=== PATIENT | female | born 2000 | race Two or more races ===

== ENCOUNTER 2019-04-16 07:01 | Emergency (ER) | payer OTHER, MEDICAID ==
[~2019-04-16] VITALS: Ht 167.6 cm; Wt 65.8 kg
[2019-04-16 07:55] VITALS: BP 114/75
== END 2019-04-16 09:44 | disposition home or self-care (01) ==
LOC: EDBD 07:01 → ER 07:01
DX: S16.1XXA Strain of muscle, fascia and tendon at neck level, initial encounter (principal); S76.012A Strain of muscle, fascia and tendon of left hip, initial encounter; S76.011A Strain of muscle, fascia and tendon of right hip, initial encounter; R51 Headache; V49.9XXA Car occupant (driver) (passenger) injured in unspecified traffic accident, initial encounter; Y93.89 Activity, other specified; Y92.89 Other specified places as the place of occurrence of the external cause; Y99.8 Other external cause status
CPT/HCPCS: 70486; 71250; 72125; 74176

== ENCOUNTER 2019-07-29 14:24 | Inpatient (IN) | payer MEDICAID ==
[~2019-07-29] VITALS: Ht 167.6 cm; Wt 55.5 kg
[2019-07-29] MEDS ORDERED: SODIUM CHLORIDE 0.9% 1,000 ML IVB ONE (14:50)
[2019-07-29] MEDS ORDERED: MORPHINE SULFATE 4 MG/ML SYR/VIAL IV ONE (15:00)
[2019-07-29] MEDS ORDERED: ONDANSETRON HCL 4 MG/2 ML VIAL IV ONE (15:00)
[2019-07-29 15:19] LABS: Basophils # (auto) 0.1 10 ^3/uL (0-0.2); Basophils % (auto) 0.3 % (0.0-2.0); Eosinophils # (auto) 0 10 ^3/uL (0-0.8); Hematocrit 41.7 % (36.0-46.0); Hemoglobin 14.5 g/dL (12.2-16.2); Lymphocytes # (auto) 0.9 10 ^3/uL (0.4-5.4); Lymphocytes % (auto) 5.7 % (10.0-50.0); Mean Corpuscular Hemoglobin 32.7 pg (28.0-32.0); Mean Corpuscular Hgb Conc. 34.8 g/dL (32.0-36.0); Monocytes # (auto) 1.4 10 ^3/uL (0-1.3); Monocytes % (auto) 9.1 % (0.0-12.0); Neutrophils # (auto) 13.1 10 ^3/uL (1.6-8.6); Neutrophils % (auto) 84.9 % (37.0-80.0); Platelet Count (auto) 153 10^3/uL (140-450); Red Blood Cells 4.44 10^6/uL (4.0-5.20); Red Cell Distribution Width 13.2 % (11.8-14.3); White Blood Cell 15.4 10^3/uL (4.4-10.8)
[2019-07-29 15:27] LABS: Urine Bacteria MANY /hpf (None Seen); Urine Blood 1+ /uL (Negative); Urine Specific Gravity 1.019 (1.001-1.035); Urine WBC 658 /hpf (0 - 5); Urine WBC Clumps PRESENT /hpf (None Seen)
[2019-07-29 15:36] LABS: Albumin 3.3 g/dL (3.4-5.0); Calcium 8.8 mg/dL (8.5-10.1); Potassium 3.7 mmol/L (3.5-5.1)
[2019-07-29 15:39] LABS: BUN/Creatinine Ratio 10.1; Bilirubin, Total 0.6 mg/dL (0.2-1.0); Total Protein 7.7 g/dL (6.4-8.2)
[2019-07-29] MEDS ORDERED: cefTRIAXone 1GM/50ML D5W 50 ML IV ONE (16:00)
[2019-07-29] MEDS ORDERED: ACETAMINOPHEN 325 MG TAB PO ONE (16:30)
[2019-07-29] MEDS ORDERED: ACETAMINOPHEN 500 MG TAB PO PRN (18:00)
[2019-07-29] MEDS ORDERED: MORPHINE SULF INJ 2 MG/ML SYRINGE 1ML IV PRN ×2 (18:00)
[2019-07-29] MEDS ORDERED: PIPERACILLIN-TAZOB 3.375GM 100 ML IV ONE (18:00)
[2019-07-29] MEDS ORDERED: DEXTROSE (50%) 50ML SYRG IV PRN (18:00)
[2019-07-29] MEDS ORDERED: NITROGLYCERIN 0.4 MG SL TAB SL PRN (18:00)
[2019-07-29] MEDS ORDERED: PROMETHAZINE HCL 25 MG/ML 1ML IV PRN (18:00)
[2019-07-29] MEDS ORDERED: TEMAZEPAM 15 MG CAP PO PRN (18:00)
[2019-07-29] MEDS: SODIUM CHLORIDE 0.9% 1,000 ML IV SCH (19:07)
[2019-07-29 20:30] VITALS: BP 102/60
--- NOTE | 2019-07-29 20:30 | NUR ---
Telemetry admit from [facility] admitted to Telemetry unit after SBAR received. Patient oriented to Chelle Victoria, primary RN, unit, room, bed, and unit policies regarding patient care and visiting hours. Patient now on continuous telemetry monitoring, tele box # 64 and telemetry reading on arrival to unit is 80. Patient placed on bedside oxygen, weighed by bedscale and encouraged to call if they need something. All questions and concerns addressed, patient verbalized understanding. Note:
[2019-07-29] MEDS: FAMOTIDINE 20 MG TAB PO SCH (21:13)
[2019-07-29] MEDS: ACCU-CHEK COMFORT CURVE STRIP VI SCH (21:14)
[2019-07-29 22:23] VITALS: BP 102/60
[2019-07-29] MEDS: PIPERACILLIN-TAZOB 3.375GM 100 ML IV SCH (23:52)
[2019-07-30] VITALS (7 sets, daily range): BP systolic 101–112; BP diastolic 51–64
[2019-07-30] MEDS: SODIUM CHLORIDE 0.9% 1,000 ML IV SCH ×3 (03:57→23:22)
[2019-07-30 05:19] LABS: Basophils # (auto) 0 10 ^3/uL (0-0.2); Basophils % (auto) 0.4 % (0.0-2.0); Eosinophils # (auto) 0 10 ^3/uL (0-0.8); Eosinophils % (auto) 0.1 % (0.0-7.0); Hematocrit 37.8 % (36.0-46.0); Hemoglobin 13.1 g/dL (12.2-16.2); Lymphocytes # (auto) 0.9 10 ^3/uL (0.4-5.4); Lymphocytes % (auto) 8.6 % (10.0-50.0); Mean Corpuscular Hemoglobin 32.9 pg (28.0-32.0); Mean Corpuscular Hgb Conc. 34.7 g/dL (32.0-36.0); Monocytes # (auto) 1.1 10 ^3/uL (0-1.3); Neutrophils # (auto) 8.2 10 ^3/uL (1.6-8.6); Neutrophils % (auto) 79.9 % (37.0-80.0); Nucleated Red Blood Cells % 0.1 %; Platelet Count (auto) 126 10^3/uL (140-450); Red Blood Cells 3.98 10^6/uL (4.0-5.20); Red Cell Distribution Width 12.9 % (11.8-14.3); White Blood Cell 10.3 10^3/uL (4.4-10.8)
[2019-07-30] MEDS: PIPERACILLIN-TAZOB 3.375GM 100 ML IV SCH ×4 (05:31→23:22)
[2019-07-30] MEDS: ACCU-CHEK COMFORT CURVE STRIP VI SCH ×4 (06:12→21:28)
--- NOTE | 2019-07-30 07:20 | NUR ---
Opening shift note Assumed care of patient. Patient A&Ox4, respirations even and non-labored with no s/s of distress. Discussed POC with patient who verbalized understanding. IV patent, intact and running NS at 100. Bed lowered/locked with 2 side rails up. Will continue to monitor.
--- NOTE | 2019-07-30 07:45 | NUR ---
Patient sitting up in bed, awake, oriented x4. No acute distress noted. No complaints of pain.
--- NOTE | 2019-07-30 08:26 | NUR ---
Patient's mother Dayan came over at the Main Lobby brought patient clothes and food placed in a bag. Patient on Regular Diet.
[2019-07-30] MEDS: traMADol HCL 50 MG TAB PO PRN ×2 (09:14→17:02)
[2019-07-30] MEDS: FAMOTIDINE 20 MG TAB PO SCH ×2 (09:14→21:27)
--- NOTE | 2019-07-30 09:14 | NUR ---
Pain Patient stated she was experiencing a 7/10 headache pain. Administered Ultram 50 mg per EMAR. Will continue to monitor.
--- NOTE | 2019-07-30 10:14 | NUR ---
Pain reassessed Patient stated that her headache was gone and rated her head pain at 0/10. Will continue to monitor.
--- NOTE | 2019-07-30 11:25 | NUR ---
Accu check = 97 mg/dl.
--- NOTE | 2019-07-30 11:35 | NUR ---
Moshe Carroll at bedside. explained to patient that her White Blood Cell count is still high. Patient for possible discharge tomorrow, Friday.
--- NOTE | 2019-07-30 14:28 | NUR ---
Rounding Patient resting with eyes closed, respirations even and non-labored with no s/s of distress. Will continue to monitor.
--- NOTE | 2019-07-30 15:55 | NUR ---
Patient in bed, no complaints of pain.
--- NOTE | 2019-07-30 17:02 | NUR ---
Patient stated she's in pain. Temp = 99.1 F. Patient stated Tylenol does not relieve her pain, requested Tramadol. Ultram Tramadol PO given for pain as ordered.
--- NOTE | 2019-07-30 17:14 | NUR ---
Accu check = 91 mg/dl.
[2019-07-31 05:09] VITALS: BP 96/57
[2019-07-31 05:12] LABS: Basophils # (auto) 0.1 10 ^3/uL (0-0.2); Basophils % (auto) 0.7 % (0.0-2.0); Eosinophils # (auto) 0 10 ^3/uL (0-0.8); Eosinophils % (auto) 0.5 % (0.0-7.0); Hematocrit 36.1 % (36.0-46.0); Hemoglobin 12.2 g/dL (12.2-16.2); Lymphocytes # (auto) 1.9 10 ^3/uL (0.4-5.4); Lymphocytes % (auto) 22.5 % (10.0-50.0); Mean Corpuscular Hemoglobin 32.1 pg (28.0-32.0); Mean Corpuscular Hgb Conc. 33.9 g/dL (32.0-36.0); Mean Corpuscular Volume 94.8 fL (80.0-100.0); Monocytes # (auto) 1.3 10 ^3/uL (0-1.3); Monocytes % (auto) 15.7 % (0.0-12.0); Neutrophils % (auto) 60.6 % (37.0-80.0); Nucleated Red Blood Cells % 0.1 %; Platelet Count (auto) 144 10^3/uL (140-450); Red Blood Cells 3.81 10^6/uL (4.0-5.20); Red Cell Distribution Width 12.6 % (11.8-14.3); White Blood Cell 8.3 10^3/uL (4.4-10.8)
[2019-07-31 05:35] LABS: Potassium 4.5 mmol/L (3.5-5.1)
[2019-07-31 05:44] LABS: Albumin 2.5 g/dL (3.4-5.0); BUN/Creatinine Ratio 5.3; Bilirubin, Total 0.5 mg/dL (0.2-1.0); Calcium 8.7 mg/dL (8.5-10.1); Total Protein 6.3 g/dL (6.4-8.2)
[2019-07-31] MEDS: PIPERACILLIN-TAZOB 3.375GM 100 ML IV SCH ×2 (06:02→11:41)
[2019-07-31] MEDS: ACCU-CHEK COMFORT CURVE STRIP VI SCH ×2 (06:11→11:41)
--- NOTE | 2019-07-31 07:15 | NUR ---
Opening Shift Note Assumed care of patient, awake and alert. No S/S of distress/SOB or pain. Instructed on POC and to call for assist PRN, will continue to monitor for changes Q1hr and PRN. bed is set in lowest locked position with side rails up x 2 for safety and call light is within reach.
[2019-07-31 08:10] VITALS: BP 102/62
[2019-07-31 09:00] VITALS: BP 102/62
[2019-07-31] MEDS: FAMOTIDINE 20 MG TAB PO SCH (10:02)
[2019-07-31] MEDS: SODIUM CHLORIDE 0.9% 1,000 ML IV SCH (10:03)
[2019-07-31 12:40] VITALS: BP 103/62
--- NOTE | 2019-07-31 13:20 | NUR ---
MD at bedside Dr. Preston, updated pt on discharge planning. Patient stated there are no further questions at this time.
[2019-07-31 13:31] VITALS: BP 103/62
[2019-07-31 15:10] VITALS: BP 109/66
--- NOTE | 2019-07-31 15:10 | NUR ---
Discharge instructions given as ordered. Encourage to follow up with PMD as instructed. All questions and concerns addressed. Patient verbalized understanding. IV removed with catheter intact, pressure dressing applied. Telemetry unit returned to ICU. Patient taken to vehicle via wheelchair with all personal belongings, accompanied by staff and family member, brother, awaiting patient's arrival to vehicle. No distress noted at time of departure.
== END 2019-07-31 15:10 | disposition home or self-care (01) | DRG 720 ==
LOC: ER 14:27 → TELE 14:28 → TELE-WESTW 20:15
PROVIDERS: ADMIT Internal Medicine; ATTEND Internal Medicine
DX: A41.9 Sepsis, unspecified organism (principal); E87.1 Hypo-osmolality and hyponatremia; N13.6 Pyonephrosis; R73.9 Hyperglycemia, unspecified; Z83.3 Family history of diabetes mellitus
CPT/HCPCS: 36415; 74176; 80053; 81001; 81025; 82962; 83036; 85025; 87086; 87088; 87186; 96365; 96367; 96375; G0378; J0696; J2405; J2543

== ENCOUNTER 2019-08-12 08:28 | Emergency (ER) | payer MEDICAID ==
[~2019-08-12] VITALS: Ht 167.6 cm; Wt 68.0 kg
[2019-08-12 08:36] VITALS: BP 111/70
[2019-08-12] MEDS ORDERED: ACETAMINOPHEN 500 MG TAB PO ONE (09:00)
[2019-08-12] MEDS ORDERED: cefTRIAXone SOD 1,000 MG VL IM ONE (09:30)
== END 2019-08-12 10:09 | disposition home or self-care (01) ==
LOC: ER 08:28
DX: J03.90 Acute tonsillitis, unspecified (principal)
CPT/HCPCS: 71046; 81002; 81025; 96372; 99283; J0696